=== PATIENT | male | born 1965 | race Caucasian/White ===

== ENCOUNTER 2020-07-19 02:16 | Emergency (ER) | payer OTHER ==
[~2020-07-19] VITALS: Ht 188 cm; Wt 136.1 kg
[2020-07-19 02:59] VITALS: BP 160/105
[2020-07-19 03:04] LABS: BASOPHILS 0.7 % (0.0-2.0); EOSINOPHILS 2.6 % (0.0-3.0); HEMATOCRIT 44.7 % (42.0-52.0); HEMOGLOBIN 15.4 gm/dL (14.0-18.0); LYMPHOCYTES 45.5 % (24.0-44.0); MCH 34.9 pg (26.0-34.0); MCHC 34.5 g/dL (28.0-37.0); MCV 101.3 fL (80.0-100.0); MONOCYTES 6.6 % (1.0-8.0); PLATELET COUNT 85 thou/uL (150-400); POLYS 44.6 % (36.0-66.0); RBC 4.41 mil/uL (4.50-6.00); RDW 14.5 % (10.5-14.5); WBC 4.4 thou/uL (4.0-11.0)
[2020-07-19 03:20] LABS: ANION GAP 9 mmol/L (7-16); BUN 10 mg/dL (7-18); CALCIUM 7.7 mg/dL (8.5-10.1); CHLORIDE 106 mmol/L (98-107); CO2 27 mmol/L (21-32); CREATININE 0.7 mg/dL (0.7-1.3); GLUCOSE 149 mg/dL (74-106); SODIUM 142 mmol/L (136-145)
[2020-07-19 03:30] LABS: ALBUMIN 2.4 g/dL (3.4-5.0); DIRECT BILIRUBIN 0.2 mg/dL (<0.1-0.2); SGOT 117 U/L (15-37); SGPT 59 U/L (30-65); TOTAL BILIRUBIN 0.5 mg/dL (0.2-1.0); TOTAL PROTEIN 7.1 g/dL (6.4-8.2); TROPONIN-I <0.06 ng/mL (<0.06)
--- NOTE | 2020-07-19 13:35 | EKG ---
[facility] [place] [address] ELECTROCARDIOGRAM REPORT Name: KAMILLE TUBBS Room #: DEP [facility]#: [id number] Admission: 07/19/20 Attend Phys: Discharge: 07/19/20 Date of : 65 Report #: [id number] THIS REPORT FOR: cc: [facility] - Clinic physician unknown [facility] - Clinic physician unknown Nura Santoro MD [facility] ~ THIS REPORT FOR: //name// [facility] ED Test Date: 2020-07-19 Test Time: 02:25:04 Pat Name: KAMILLE TUBBS Department: Room: Gender: M [employer]: : 1965 Requested By: Mary Kaur Order Number: [id number] : Nura Santoro Measurements Intervals [place] Rate: 96 P: 69 UT: 175 QRS: 68 QRSD: 100 T: 41 QT: 375 QTc: 474 Interpretive Statements Sinus rhythm No previous ECG available for comparison Electronically Signed On 07-19-2020 13:35:49 CYCLE LIAISON by Nura Santoro [email or web address] <ELECTRONICALLY SIGNED> By: Nura Santoro MD, FACC 07/19/20 1335 [id number] 0225 Nura Santoro MD, FACC /EPI
== END 2020-07-19 03:26 | disposition left against medical advice (07) ==
LOC: ER 02:16
PROVIDERS: Emergency Medicine
DX: R07.89 Other chest pain (principal); R06.02 Shortness of breath; R45.1 Restlessness and agitation; Z53.29 Procedure and treatment not carried out because of patient's decision for other reasons; F17.210 Nicotine dependence, cigarettes, uncomplicated; Z95.0 Presence of cardiac pacemaker